=== PATIENT | male | born 1990 | race Caucasian/White ===

== ENCOUNTER 2018-05-14 19:52 | Emergency (ER) | payer SELFPAY ==
[~2018-05-14] VITALS: Ht 182.9 cm; Wt 72.6 kg
--- NOTE | 2018-05-14 20:06 | NUR ---
Pt. ambulated into ED w/ c/o R middle finger pain 12/21 upon waking up, finger is swollen at the tip, mobility in finger is decreased, denies SOB/CP/PADILLA/F/N/V,
[2018-05-14] MEDS ORDERED: IBUPROFEN 800 MG TABLET PO ONE (21:00)
[2018-05-14] MEDS ORDERED: IBUPROFEN 800 MG TABLET ONE (21:13)
--- NOTE | 2018-05-14 21:14 | NUR ---
Germaine cote in ED - 05/14/18 at 2117 by DAMARIS Patient eloped from facility. ER physician notified.
--- NOTE | 2018-05-14 22:01 | NUR ---
Patient discharged to home in stable conditon. Written and verbal after care instructions given. Patient verbalizes understanding of instructions. Pt. d/c per MD orders, no acute distress, all belongings taken w/ pt.,
== END 2018-05-14 22:03 | disposition home or self-care (01) ==
LOC: ER 19:54
DX: L03.011 Cellulitis of right finger (principal); F11.10 Opioid abuse, uncomplicated; F15.10 Other stimulant abuse, uncomplicated; F12.10 Cannabis abuse, uncomplicated; F17.200 Nicotine dependence, unspecified, uncomplicated; Z59.0 Homelessness
CPT/HCPCS: A4663